=== PATIENT | male | born 1985 | race Caucasian/White ===

== ENCOUNTER 2020-03-23 19:05 | Emergency (ER) | payer MEDICAID, OTHER ==
[~2020-03-23] VITALS: Ht 172.7 cm; Wt 86.4 kg
[2020-03-23] MEDS ORDERED: KETOROLAC TROMETHAMINE 60 MG/2 ML VIAL IM ONE (20:45)
[2020-03-23 21:40] VITALS: BP 138/89
== END 2020-03-23 21:44 | disposition home or self-care (01) ==
LOC: EMS 19:05
DX: M25.561 Pain in right knee (principal); F17.210 Nicotine dependence, cigarettes, uncomplicated; F12.90 Cannabis use, unspecified, uncomplicated; F15.90 Other stimulant use, unspecified, uncomplicated
CPT/HCPCS: 73562; 96372; 99283; J1885; 29530

== ENCOUNTER 2022-02-11 17:43 | Emergency (ER) | payer OTHER | END 2022-02-11 17:46 | disposition left against medical advice (07) | LOC: EMS 17:46 | DX: F29 Unspecified psychosis not due to a substance or known physiological condition (principal); Z53.21 Procedure and treatment not carried out due to patient leaving prior to being seen by health care provider ==

== ENCOUNTER 2022-04-14 06:25 | Emergency (ER) | payer OTHER ==
[~2022-04-14] VITALS: Ht 170.2 cm; Wt 84.1 kg
[2022-04-14 06:28] VITALS: BP 131/99
== END 2022-04-14 07:03 | disposition home or self-care (01) ==
LOC: EMS 06:27
DX: R19.4 Change in bowel habit (principal); F12.90 Cannabis use, unspecified, uncomplicated; F15.90 Other stimulant use, unspecified, uncomplicated; F17.210 Nicotine dependence, cigarettes, uncomplicated
CPT/HCPCS: 99281; Z7502